=== PATIENT | female | born 1965 | race Caucasian/White ===

== ENCOUNTER 2016-10-25 08:31 | Day surgery (SDC) | payer BC ==
[2016-10-24 11:44] VITALS: BMI 38.4
[2016-10-25 09:06] LABS: MCH 22.9 pg (25.7-33.7); MCHC 31.3 g/dl (32.0-36.0); MEAN CELL VOLUME 73.2 fl (80-96); PLATELET COUNT 254 K/MM3 (134-434); RDW 18.4 % (11.6-15.6); WHITE BLOOD COUNT 7.7 K/mm3 (4.0-10.0)
[2016-10-25 09:33] LABS: CALCIUM 9.5 mg/dL (8.5-10.1); CREATININE 0.7 mg/dL (0.55-1.02)
[2016-10-25] MEDS ORDERED: BUPIVACAINE HCL/PF 0.25% (2.5MG/ML) 10 ML VIAL ONE (10:08)
[2016-10-25] MEDS ORDERED: PROPOFOL 20 ML ONE ×5 (10:09→10:59)
[2016-10-25] MEDS ORDERED: MIDAZOLAM HCL 2 MG/2 ML SINGLE DOSE VIAL ONE (10:09)
[2016-10-25] MEDS ORDERED: ROCURONIUM BROMIDE 50 MG/5 ML VIAL ONE (10:09)
[2016-10-25] MEDS ORDERED: CLINDAMYCIN PHOSPHATE 600 MG/4 ML VIAL ONE (10:10)
[2016-10-25] MEDS ORDERED: LIDOCAINE HCL/PF 2% SDV 5ML VIAL ONE ×2 (10:10)
[2016-10-25] MEDS ORDERED: KETOROLAC TROMETHAMINE 30 MG/1 ML VIAL ONE (10:10)
[2016-10-25] MEDS ORDERED: DEXAMETHASONE SOD PHOSPHATE 4 MG/1 ML VIAL ONE (10:10)
[2016-10-25] MEDS ORDERED: PROMETHAZINE HCL 25 MG/1 ML VIAL IVPUSH PRN (10:17)
[2016-10-25] MEDS ORDERED: IBUPROFEN 800 MG/8 ML IJ IVPB PRN (10:18)
[2016-10-25] MEDS ORDERED: LACTATED RINGERS SOLUTION 1,000 ML IV SCH (10:30)
[2016-10-25] MEDS ORDERED: LEVOFLOXACIN 500 MG IVPB 100 ML IVPB ONE (10:34)
[2016-10-25] MEDS ORDERED: LEVOFLOXACIN 500 MG PREMIX BAG IVPB ONE (10:34)
[2016-10-25] MEDS ORDERED: NEOSTIGMINE METHYLSULFATE 0.5 MG/ML - 10 ML MDV ONE (11:00)
[2016-10-25] MEDS ORDERED: SODIUM CHLORIDE 1,000 ML IV SCH (11:15)
[2016-10-25] MEDS ORDERED: traMADol HCL 50 MG TABLET PO PRN (11:16)
[2016-10-25] MEDS ORDERED: ACETAMINOPHEN 1000 MG/100 ML VIAL (NON FORMULARY) IVPB PRN (11:45)
[2016-10-25] MEDS ORDERED: ACETAMINOPHEN INJECTION 100 ML IVPB ONE (11:51)
[2016-10-25] MEDS ORDERED: ENOXAPARIN NA (PORCINE) 40 MG/0.4 ML DISP.SYRIN SQ ONE (12:00)
[2016-10-25] MEDS ORDERED: IBUPROFEN 800 MG/8 ML IJ IVPB ONE (12:11)
[2016-10-25 12:30] VITALS: TEMP 97.8
[2016-10-25] MEDS ORDERED: ONDANSETRON 4 MG/2 ML VIAL IVPUSH PRN (12:45)
[2016-10-25 15:01] VITALS: BP 125/79; PULSE 62
[2016-10-25] MEDS ORDERED: ONDANSETRON 4 MG/2 ML VIAL IVPB PRN (18:00)
[2016-10-25] MEDS ORDERED: FAMOTIDINE 20 MG/50 ML IVPB 50 ML IVPB SCH (22:00)
--- NOTE | 2016-10-26 09:45 | OP ---
DATE OF OPERATION: 10/25/2016 PREOPERATIVE DIAGNOSIS: 1. Right upper quadrant abdominal pain. 2. Morbid obesity. 3. Malfunctioning subcutaneous gastric band port. POSTOPERATIVE DIAGNOSIS: 1. Right upper quadrant abdominal pain. 2. Morbid obesity. 3. Malfunctioning subcutaneous gastric band port. 4. Fibrous capsule around the port. PROCEDURE PERFORMED: 1. Revision of subcutaneous gastric band port. 2. Injection of port for band fill. 3. Excision of fibrous capsule around the port. OPERATING SURGEON: Young Hopson MD WOOD MOLDER: Cheikh William MD ANESTHESIA: General. OPERATIVE PROCEDURE: The patient was brought into the operating room, placed on the OR table in supine position. All precautions were taken initially including padding for the back, and Venodyne boots were placed on both lower extremities. At that point, the abdomen was prepped and draped in the usual manner. The patient had right upper quadrant abdominal subcutaneous port from the gastric band. This port was malfunctioning and had an apparent leak and every time fluid was injected to tighten the band, the patient would feel right upper quadrant pain or discomfort. Therefore, the patient presented for surgery for revision of the port. An incision was made in the right upper quadrant through the previous No. 15 trocar site incision. This incision was carried down through the skin with a scalpel and then, through the subcutaneous fat with electrocautery. It was very, very deep, and besides the self-retainer, the hr administrative assistant surgeon needed to place two retractors in order to retract the wound. The dissection continued down to where the port was felt on the right anterior rectus muscle. The fibrous capsule over the port was dissected off, and the port was now in full view. Electrocautery was now used to score the scar tissue off of the port tubing which led to the port being placed into the abdominal cavity. Once this was done, the tubing was lifted up from the abdominal cavity, and now, the connection between the port and the tubing was in full view. At this point, saline was placed with a No. 21-gauge needle into the port, and it showed a leak was happening just before the connection to the tubing and the abdomen, which means it was at the distal portion of the port. At that point, both this distal end of the tubing and distal end of the port were dissected off the metallic piece, and both ends were cut in order to get good fresh tubing on both the port site and on the intraabdominal tubing site. Once this was done, the metal piece was reinserted to both ends, and then, both ends were connected together. At this point, 0.5 cc of saline was placed into the subcutaneous port and then injected, and when injected, there was no leaking noted from the connecting tubing or from the port site, which means the repair was finished correctly. After 1.5 cm was placed into the port, the needle was removed from the port, but the patient got a 1.5-cm gastric band fill. At this juncture, some very minor oozing in the subcutaneous tissue was controlled, and then closure was performed with 3-0 Vicryl in the subcutaneous tissue in interrupted fashion. This was followed by 4-0 Biosyn in subcuticular fashion. Dressings were applied. Patient awoke from anesthesia and transferred out of the operating room to the recovery room in stable condition. ANESTHESIA: General. SURGEON: Young Hopson MD WOOD MOLDER: Cheikh William MD EXPECTED BLOOD LOSS: 10 mL. Patient transferred to the recovery room in stable condition. Michelle [id number]
== END 2016-10-25 14:00 | disposition home or self-care (01) ==
LOC: JASUSAT 08:31 → JASU-SURG 08:31 → JASUSAT 14:00
PROVIDERS: ATTEND Surgery
PROC: 0DP60CZ Removal of Extraluminal Device from Stomach, Open Approach (ICD-10-PCS; 2016-10-25)
PROC: 0JPT0WZ Removal of Totally Implantable Vascular Access Device from Trunk Subcutaneous Tissue and Fascia, Open Approach (ICD-10-PCS; principal; 2016-10-25 10:00)
DX: K95.09 Other complications of gastric band procedure (principal); Y83.2 Surgical operation with anastomosis, bypass or graft as the cause of abnormal reaction of the patient, or of later complication, without mention of misadventure at the time of the procedure; Y92.9 Unspecified place or not applicable; R10.11 Right upper quadrant pain; E66.01 Morbid (severe) obesity due to excess calories
CPT/HCPCS: 36415; 80048; 84703; 85027; 94010; 94760